=== PATIENT | female | born 2000 | race Hispanic/Latino ===

== ENCOUNTER → 2025-02-21 | Outpatient (CLI) | payer BC ==
--- NOTE | 2025-02-26 11:06 | HMCIMG ---
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 There is no significant curvature. All pedicles and spinous processes are intact. No fracture or bony lesions are identified. The disc spaces are normal. The visualized soft tissues are unremarkable. IMPRESSION: No scoliosis. No acute pathology.
== END | disposition home or self-care (01) ==
LOC: RAH 12:25
PROVIDERS: ATTEND Physical Medicine & Rehabilitation
DX: M99.04 Segmental and somatic dysfunction of sacral region (principal); M54.50 Low back pain, unspecified; M21.70 Unequal limb length (acquired), unspecified site
CPT/HCPCS: 72082